=== PATIENT | male | born 1940 | race Caucasian/White ===

== ENCOUNTER 2017-01-24 06:45 | Day surgery (SDC) | payer OTHER ==
[~2017-01-24] VITALS: Ht 177.8 cm; Wt 71.5 kg
[~2017-01-24 06:45] MED LIST: ASPI81TA82 PO; COQ1400C2 PO; LEVA500T PO; LISI-366 PO; ROSU40 PO; TAB-TAB PO
[2017-01-24 07:00] VITALS: BP 109/61; PULSE 60; RESP 17; O2SAT 96
[2017-01-24] MEDS ORDERED: POVIDONE IODINE 5% (ANTISEPSIS KIT) 4 APPLICATIONS EACH NARE PRN (07:30)
[2017-01-24] MEDS ORDERED: INSULIN HUMAN REGULAR 1,000 UNITS/10 ML VIAL SQ PRN (07:30)
[2017-01-24] MEDS ORDERED: CHLORHEXIDINE GLUCONATE 2 % 1 PACK (2 CLOTHS) TOPICAL SCH (07:30)
[2017-01-24] MEDS ORDERED: LACTATED RINGER'S 1000 ML IV PRN (07:30)
[2017-01-24] MEDS ORDERED: MUPIROCIN 2% OINT 1 APPLIC/GM SYR NASAL SCH (07:30)
[2017-01-24] MEDS ORDERED: VANCOMYCIN 1000 MG/NS 250 ML IV SCH ×2 (07:30)
[2017-01-24] MEDS ORDERED: CHLORHEXIDINE GLUCONATE 2 % 1 PACK (2 CLOTHS) TOPICAL PRN (07:30)
[2017-01-24] MEDS ORDERED: Hold AM Insulin & AM Hypoglycemic medications in diabetic patients PRN (07:30)
[2017-01-24] MEDS ORDERED: SODIUM CHLORID 0.9% 500 ML IV PRN (07:30)
[2017-01-24] MEDS ORDERED: NO Heparin, Lovenox, Coumadin at least 12 hours prior to procedure. PRN (07:30)
[2017-01-24] MEDS ORDERED: ceFAZolin 2 GM PREMIX 50 ML IV SCH (07:30)
[2017-01-24] MEDS ORDERED: POVIDONE IODINE 5% (ANTISEPSIS KIT) 4 APPLICATIONS EACH NARE SCH (07:30)
[2017-01-24] MEDS ORDERED: METOPROLOL TARTRATE 25 MG TAB PO PRN (07:30)
[2017-01-24] MEDS ORDERED: AMIO200T PO (07:39)
[2017-01-24] MEDS ORDERED: CARV25TA PO (07:39)
[2017-01-24] MEDS ORDERED: SACU1TAB7 PO (07:39)
[2017-01-24] MEDS ORDERED: FURO1TAB62 PO (07:39)
[2017-01-24] MEDS ORDERED: XARE15TA PO (07:39)
[2017-01-24] MEDS ORDERED: ROSU40 PO (07:39)
[2017-01-24 07:57] LABS: APTT (PATIENT) 28.7 SEC (24.3-30.1); INTERNATIONAL NORMALIZED RATIO 1.1 RATIO; PROTHROMBIN TIME - PATIENT 12.4 SEC (9.8-11.6)
[2017-01-24] MEDS: NS 1000 ML IV SCH (08:00)
[2017-01-24 08:10] LABS: BICARBONATE 26.4 MEQ/L (21.0-32.0); POTASSIUM 4.3 MEQ/L (3.5-5.1)
[2017-01-24] MEDS ORDERED: LIDOCAINE HCL 2% 50 ML VIAL ONE (08:23)
[2017-01-24] MEDS ORDERED: MIDAZOLAM HCL 2 MG/2 ML VIAL ONE (08:47)
[2017-01-24] MEDS ORDERED: KETAMINE HCL 500 MG/10 ML VIAL ONE (08:47)
[2017-01-24] MEDS ORDERED: ONDANSETRON HCL 4 MG/2 ML VIAL IV PUSH ONE (09:02)
[2017-01-24] MEDS ORDERED: PROPOFOL 200 MG/20 ML AMP OTHER ONE (09:02)
[2017-01-24] MEDS ORDERED: IOHEXOL 350 MG/ML 50 ML BTL (for Cath Lab) OTHER ONE (09:02)
[2017-01-24 09:07] LABS: AUTOMATED NEUTROPHIL # 3.6 TH/MM3 (1.8-7.7); BASOPHIL % 0.8 % (0.0-2.0); EOSINOPHIL # 0.1 TH/MM3 (0-0.4); EOSINOPHIL % 2.5 % (0.0-4.0); HEMATOCRIT 37.3 % (39.0-51.0); HEMO FLAGS DIFF FINAL; LYMPH % 22.2 % (9.0-44.0); LYMPHOCYTE # 1.3 TH/MM3 (1.0-4.8); MEAN CELL VOLUME 96.9 FL (80.0-100.0); MEAN CORPUSCULAR HEMOGLOBIN 31.7 PG (27.0-34.0); MEAN CORPUSCULAR HGB CONC 32.7 % (32.0-36.0); MONO % 10.6 % (0.0-8.0); NEUT % 63.9 % (16.0-70.0); PLATELET COUNT 119 TH/MM3 (150-450); RED BLOOD COUNT 3.85 MIL/MM3 (4.50-5.90); RED CELL DISTRIBUTION WIDTH 14.3 % (11.6-17.2); WHITE BLOOD COUNT 5.7 TH/MM3 (4.0-11.0)
--- NOTE | 2017-01-24 10:50 | EKG ---
Date Performed: 01/24/2017 Time Performed: 07:46:54 PTAGE: 76 years EKG: Ventricular pacing. Pacemaker rhythm - no further analysis Abnormal ECG PREVIOUS TRACING : 01/25/2016 16.38 DOCTOR: Cody Bhat Interpretating Date/Time 01/24/2017 10:50:06
--- NOTE | 2017-01-24 11:14 | CATHPROC ---
[facility] HIS Report Study Information Study Number Admission Scheduled Start Study Start [id number] Jan 24 2017 6:45AM 01/24/2017 Jan 24 2017 7:47AM [facility] Service Cardiac Pacer/ICD Admit Source Facility Department Other [facility] [employer] Physician and Clinical Staff Initial Neptali Meléndez Resource Efficiency Manager Brandon Goodwin,RT(R) Other Anesthesia, BILLING ASSISTANT Recorder Kamille Lu,ZOILARN Scrub Merlyn Mcclelland,RT(R) TECH2 Procedures Performed Procedure Location (Site) Vessel Name Lead Insertion Venogram Coronary Sinus Other Venogram Subclav. Vein (Lft Subclavian Vein Wire insertion Coronary Sinus Other Equipment Time Movie Writer Description Size Mfg Part Number Used/Scraped [id number] 09:37 [employer] WIRE, ASAHI PROWATER 180CM 180CM Used *[id number] 76748-63 09:37 [employer] WIRE, ASAHI PROWATER 180CM 180CM Used *[id number] WIRE, BALANCE MIDDLEWEIGHT [id number] 10:08 [employer] 190CM Used 190CM *[id number] CATHETER, BIFURCATED 10:42 ANGIO-DYNAMICS FR 5 15545 Used INFUSION BENEPHIT [id number] 09:36 FUNES ASH SWAN JACQUES CATHETER FR 7 Used *[id number] DEFIBRILLATOR, ITREVIA 7 HF-T 10:38 BIOTRONIK VDE-DDDRV [id number] Used QP (BULK) 09:31 BIOTRONIK LEAD, PLEXA PRO-MRI SD 65/18 [id number] Used LEAD, SENTUS PRO-MRI OTW QP 09:56 BIOTRONIK * [id number] Used L-85/49 LEAD, SENTUS PRO-MRI OTW QP 10:36 BIOTRONIK [id number] Used S-75/49 [id number] 10:50 DAVOL INC NIA, HEMOSTAT 1 GRAM Used *[id number] MARINE POLYMER 10:43 PATCH, SYVEK EXCEL (PACER) 400-16-05 Used TECHNOLOGIES TP-1103 07:51 [employer] INDUSTRIES SUTURE, STRIP PLUS 1/2" * Used *[id number] 07:51 [employer] PACER ADHESIVE, MASTISOL 2/3CC 2/3CC 0523-48 Used 07:51 [employer] PACER LOPEZ, LIMB * 2530 *[id number] Used [id number] 07:51 [employer] PACER PACK, PACER CUSTOM * Used *[id number] 07:51 MEDLINE PACER PEN, SKIN DUAL W/ RULER * Used *[id number] 09:29 [employer] MEDICAL WIRE, 3MMJ .035 180CM 180CM Used *[id number] 08:42 [employer] MEDICAL PACER SAFE SHEATH, FR8, 13CM FR 8 [id number] Used 08:43 [employer] MEDICAL PACER SAFE SHEATH, FR9, 13CM FR 9 [id number] Used 08:45 Needle Sponge Count 1 111 Used 10:46 Needle Sponge Count 3 3 Used 10:53 Needle Sponge Count 3 3 Used 10:56 Needle Sponge Count 3 3 Used 08:44 Needle Sponge Count 3 3 Used 08:44 Needle Sponge Count 30 1 Used 10:53 Needle Sponge Count 30 1 Used 08:40 NYCOMED OMNIPAQUE, 350 MG, 50ML 50ML [id number] Used [id number] *[id number] SUTURE, 3-0 VICRYL [SH] ([id number]) SUTURE, 3-0 VICRYL [SH] ([id number]) SUTURE, 4-0 MONOCRYL [PS2] (Y496G) [id number] 07:51 [employer],WARM AIR CCL * Used *[id number] [facility] PAD, ELECTROSURGICAL 07:51 * [id number] *[id number] Used SURGICAL GROUNDING ORANGE 07:52 VITATRON MEDTRONIC PLASMABLADE, PEAD 3.0S * [id number] Used [id number] 07:51 [employer] HENRI. ELECTRODE, PRO-PADZ BIPHASIC * Used *[id number] Equipment Model, Serial, Lot Number and Expiration Data Description Model Number Serial Number Lot Number Expiration Date DEFIBRILLATOR, ITREVIA 7 HF-T [id number] 11-19-2018 QP (BULK) LEAD, PLEXA PRO-MRI SD 65/18 [id number] 08-22-2017 LEAD, SENTUS PRO-MRI OTW QP [id number] 09-19-2018 L-85/49 LEAD, SENTUS PRO-MRI OTW QP [id number] 11-19-2018 S-75/49 History: Current Medications Medication Dosage/Unit Route Frequency Last Date/Time Taken XARELTO Statins (any) Beta Ashley ASA History: Allergies Allergy Reaction NKDA History: Risk Factors Family History of Hypertension Dyslipidemia Previous OR Previous Heart Failure Premature CAD Yes Yes Yes Yes Yes Prior Valve Prior PCI Prior CABG Surgery No No Yes Cerebrovascular Peripheral Artery Chronic Lung On Dialysis Diabetes Disease Disease Disease No No Yes Yes No History: Risk Factors Selection Items Previous OR (>7 days) Hyperlipidemia Previous Cardiovascular Treatment History: Symptoms/Diagnosis Selection Items SOB History: CV Disease Selection Items Cardiomyopathy dilated Known CAD OR History: Other Disease Selection Items CAD HTN Renal Failure/Insufficiency Labs Hgb (g/dl) Hct (%) RBC (MIL/MM3) WBC (l/cumm) Platelets (thousands) 11.60-17.00 35.00-51.00 4.00-5.90 4.00-11.00 150.00-450.00 12.2 37.3 3.8 5.7 119 Glucose (mg/dl) BUN (mg/dl) Creatinine (mg/dl) BUN:Creatinine (1:x) 74.00-106.00 7.00-18.00 0.50-1.30 10.00-20.00 98 22 1.8 12.2 Na (meq/l) K (meq/l) Cl (meq/l) CO2 (mmol/L) Ca (mg/dl) 136.00-145.00 3.50-5.10 98.00-107.00 21.00-32.00 8.50-10.10 140 4.3 106 26.4 9.1 INR (PTT:PT) 0.90-1.10 1.1 Medication Medication Total Dose (Bolus/Oral) Medication Total Dosage/Unit 2% XYLOCAINE 50 mL Medications (Bolus/Oral) Medication Time Given Dosage/Unit Administered By Reason 2% XYLOCAINE 01/24/2017 9:04:06 AM 50 mL Neptali Reynolds For pain 50 mL 2% XYLOCAINE given in lab by Neptali Reynolds via Subcutaneous. Ordered by Neptali Reynolds. Reason: Fo r pain. left upper chest Medication (Drip) Medication Time Given Dosage/Unit Concentration/Unit Diluent (ml) Solution ANCEF 01/24/2017 8:46:57 AM 2 g 2 g ANCEF given in lab by Kamille Lu BSRN in Right Forearm via Peripheral IV. Ordered by Neptali Reynolds. Reason: As per physicians verbal order. IV Solutions 01/24/2017 8:34:50 AM 0 mL (IV) NaCl .9 IV Solutions given in lab by Kamille Lu BSRN in Right Forearm via Peripheral IV. Pump/Drip Thai w = 50 ml/hr using NaCl .9. Ordered by Neptali Reynolds. Reason: As per physicians verbal order. IV Solutions 01/24/2017 8:34:51 AM 0 mL (IV) NaCl .9 IV Solutions given in lab by Kamille Lu BSRN in Left Forearm via Peripheral IV. Pump/Drip Flow = 50 ml/hr using NaCl .9. Ordered by Neptali Reynolds. Reason: As per physicians verbal order. VANCOMYCIN DRIP 01/24/2017 8:18:00 AM 1 g 1 g VANCOMYCIN DRIP given in lab by Kamille Lu BSRN in Right Forearm via Peripheral IV. Ordere d by Neptali Reynolds. Reason: As per physicians verbal order. Initial Case Assessment Cardiovascular HR NIBP Chest Pain 60 129/79 0 Edema Present Skin color Skin None Normal Warm Dry Neurological State Oriented to time-place- Alert Moves all extremities person Respiration - General Respiration Rate SpO2 (%) (B/min) 18 97 Final Case Assessment Cardiovascular HR NIBP 68 113/73 Edema Present Skin color Skin None Normal Warm Dry Neurological State Oriented to time-place- Alert Moves all extremities person Respiration - General Respiration Rate SpO2 (%) (B/min) 18 98 Chronological Log Time Study Chronological Log 8:11:04 Patient arrived via Bed. 8:11:07 Patient Name, D.O.B, / Armband Verified By R.N. 8:11:09 Consent signed by the physician and the patient and verified by the [employer] staff. 1 g VANCOMYCIN DRIP given in lab by Kamille Lu BSRN in Right Forearm via Peripheral IV. Ordered by Rodolfo, 8:18:00 Neptali. Reason: As per physicians verbal order. 8:32:16 Pre-op and post- op instructions given; patient acknowledges understanding of instructions. 8:32:26 CBC redrawn and sent to lab. Dr. Reynolds notified of redraw and creatinine level. 8:33:05 Anesthesia at bedside. Assumes care of patient. Mu 8:33:09 Patient has been NPO for More than 6Hrs. 8:33:14 Skin Breakdown- scabs noted both hands 8:33:36 Patient Warmer Placed on the Table. 8:33:39 Disposable Defibrillator Pads Placed On Patient. 8:33:42 Remington Prominences Protected 8:33:47 A # 20 IV was noted in the Forearm (right). Grade = ~GRADE~ 8:34:42 A # 20 IV was noted in the Forearm (left). Grade = ~GRADE~ IV Solutions given in lab by Kamille Lu BSRN in Right Forearm via Peripheral IV. Pump/Dri p Flow = 50 ml/hr 8:34:50 using NaCl .9. Ordered by Neptali Reynolds. Reason: As per physicians verbal order. IV Solutions given in lab by Kamille Lu BSRN in Left Forearm via Peripheral IV. Pump/Drip Flow = 50 ml/hr using 8:34:51 NaCl .9. Ordered by Neptali Reynolds. Reason: As per physicians verbal order. 8:35:45 History and physical on the chart or being dictated. Assessment: Initial Case, HR=60 BPM, MCAM=895/79 mmhg, Chest Pain=0, Edema=None, Color=Normal, S kin = Warm, Dry 8:35:48 Neurological: State=Alert, Ox3, FREEMAN Respiration: Resp=18 B/min, SpO2=97 % 8:36:29 Table restraints applied according to hospital policy 8:36:33 Left Upper Chest Prepped Times Two. 8:36:45 2% CHLORHEXIDINE GLUCONATE WASH AND NASAL SWIPE DONE PRIOR TO PROCEDURE. 8:36:52 Bovie ground pad applied to: right leg First Sponge And Instrument Count Done by Brandon Goodwin, RT(R). Hypo's: 3, Sponges: 30, Bovie/scratch: 1 8:43:04 Sutures: 6, Blades: 2, Instruments: 26, Syveck Patches: 0 10 Raytec sponges added at 0945 on e suture added at 1045 2 g ANCEF given in lab by Kamille Lu BSRN in Right Forearm via Peripheral IV. Ordered by Neptali Reynolds. 8:46:57 Reason: As per physicians verbal order. 8:51:00 paged 8:51:01 MD responded 8:57:22 MD arrived. 8:57:51 Immediate Presedation assesment performed by physician. 8:59:42 Reference ECG taken Time Out. Correct patient, procedure, procedure equipment, site and side verified with physician present. Time 9::47 concurred by MD, individual staff and BILLING ASSISTANT. Time Out #2 - Consents verified, patient in correct position, all results are labled and display ed, safety precautions 9:01:53 taken, antibiotics administered. Time out concurred by MD, individual staff and BILLING ASSISTANT in procedur e 9:02:00 Case Start 50 mL 2% XYLOCAINE given in lab by Neptali Reynolds via Subcutaneous. Ordered by Neptali Reynolds. Reaso n: For pain. left 9:04:06 upper chest 9:05:29 The Subclav. Vein (Lft was manually injected with 10 cc's of contrast. OMNIPAQUE, 350 MG, 50 ML 50ML used. 9:05:47 Surgical Incision Made. 9:08:17 Pocket opened. 9:11:12 Device removed from pocket. 9:15:15 Vascular access was obtained in the Subclav. Vein (Lft. 9:16:04 2 Raytec sponges in pocket 9:16:34 Vascular access was obtained in the Subclav. Vein (Lft. 9:18:03 A SAFE SHEATH, FR8, 13CM FR 8 was advanced into the Subclav. Vein (Lft using the Percutaneou s technique. 9:22:54 A LEAD, PLEXA PRO-MRI SD 65/18 was inserted and positioned in the RV. 9:23:03 Lead placement verified under fluoroscopy 9:23:07 The RV lead impedance and threshold being tested. 9:23:11 The RV lead was sutured to the fascia. 9:29:01 Medtronic sheath inserted with 035 wire and placed in CS 9:33:34 The Coronary Sinus was manually injected with 10 cc's of contrast. OMNIPAQUE, 350 MG, 50ML 5 0ML used. 9:36:25 Tevin catheter inserted into CS Medtronic Lead. 9:37:20 Two Raytecs out of pocket. 9:37:39 Tevin catheter removed. Prowater inserted into CS 9:41:20 A LEAD, SENTUS PRO-MRI OTW QP L-85/49 * was inserted and positioned in the CS/LV. 9:45:59 Lead placement verified under fluoroscopy 9:46:03 The CS/LV lead impedance and threshold is being tested. 9:47:00 CS lead removed. 10:02:25 Tevin catheter reinserted. 10:05:08 The Coronary Sinus was manually injected with 10 cc's of contrast. OMNIPAQUE, 350 MG, 50ML 50ML used. 10:06:27 Tevin removed. 10:08:11 A WIRE, BALANCE MIDDLEWEIGHT 190CM 190CM was inserted via Coronary Sinus. 10:10:32 CS lead reinserted using BMW wire. 10:15:07 CS lead removed. 10:16:04 A LEAD, SENTUS PRO-MRI OTW QP S-75/49 was inserted and positioned in the CS/LV. New CS lead inserted. 10:24:26 Lead placement verified under fluoroscopy 10:24:29 The CS/LV lead impedance and threshold is being tested. 10:25:48 Prowater and BMW wires removed. 10:29:59 The CS/LV lead impedance and threshold is being tested. 10:30:10 The CS/LV lead was sutured to the fascia. 10:38:02 SYVEK placed in pocket. 10:38:28 A DEFIBRILLATOR, ITREVIA 7 HF-T QP (BULK) VDE-DDDRV was connected and placed in the pocket. 10:38:37 Implant Procedure was performed. BIV UPGRADE 10:39:06 A Bivent ICD Implant . (Dual) 10:41:19 SYVEK patch removed from pocket 10:42:44 Capping off old lead. 10:47:22 A two Joul DFT was performed. 10:49:10 Nia placed in pocket. 10:51:13 The DFT was Success at 20 Joules, 36 Ohms lead impedance and 3800 ms charge time. Second Sponge And Instrument Count Done by Brandon Goodwin RT(R). 10:51:55 Hypo's: 3, Sponges: 30, Bovie/scratch: 1 Sutures: ~SUTURE~, Blades: 2, Instruments: ~INSTRU~, Syveck Patches: 1 10 sponges added for a t otal of 40 10:52:12 The pocket was closed. 10:55:38 Bedside Report will be given to DOC 10:55:54 Steri-strips and a sterile dressing applied to site. The Final Sponge And Instrument Count Done by Brandon Goodwin RT(R). 10:55:58 Hypo's: 3, Sponges: 30, Bovie/scratch: 1 Sutures: 7, Blades: 2, Instruments: 26, Syveck Patches: 1 10 sponges added for total 0f 40 10:56:02 A sling was placed on the affected arm. 11:07:45 Case End Assessment: Final Case, HR=68 BPM, FFEE=725/73 mmhg, Edema=None, Color=Normal, Skin = Warm, Dry 11:08:00 Neurological: State=Alert, Ox3, FREEMAN Respiration: Resp=18 B/min, SpO2=98 % 11:12:00 No case complications noted. 11:13:17 Cine recording checked. 11:13:28 Implantable Device card placed in patient's chart. 11:13:30 Contrast Scanned 11:13:33 Defibrillator and ground pads removed. Skin intact. 11:13:37 Verbal Stimulation=2 Physical Stimulation=2 Airway=2 Respiration=2 TOTAL=10. (0=absent, 1= limited, 2=present) 11:13:59 Patient moved to bed and transported to [facility] in stable condition. End Study - Contrast Media Used In Study Contrast Total Opened (mL) Total Used (mL) Total Wasted (mL) Omnipaque 50 20 30 End Study - Maximum Contrast Load Max Contrast Load (mL) 195.3 End Study - Radiation Exposure Fluoro Time (minutes) 30.0 End Study - Patient Disposition Complications Transferred To Interventional Outcome No Telemetry Bed successful
[2017-01-24] MEDS ORDERED: DO NOT ADM ANY ANTICOAGULANT DRUGS PRN (11:15)
[2017-01-24] MEDS ORDERED: traMADol HCL 50 MG TAB PO PRN (11:30)
[2017-01-24] MEDS ORDERED: ZOLPIDEM TARTRATE 5 MG TAB PO PRN (11:30)
[2017-01-24] MEDS ORDERED: MORPHINE SULFATE 4 MG/ML INJ ONE (11:31)
--- NOTE | 2017-01-24 13:25 | MP ---
cc: BEATRICE CAMERON M.D. DATE OF SURGERY January 24, 2017 PROCEDURE Upgrade of a preexisting dual-chamber permanent pacemaker to a biventricular AICD, AICD defibrillation threshold testing. OPERATIVE NOTES The patient was brought to the operating suite in a fasting state after having signed informed consent. The left upper chest was prepped and draped as per policy and anesthetized with 1% lidocaine. A transverse incision was made over the preexisting pacemaker generator using a plasma blade and, using blunt dissection, the pacemaker generator was freed from the subcutaneous pocket. After administration of 5 cc of contrast through a left arm peripheral IV, central venous access was obtained twice via the left subclavian vein. A subcutaneous pocket was formed down to the pectoralis fascia. Over the more lateral guidewire an 8-Mosotho sheath was placed and through this sheath a ventricular active fixation AICD lead was introduced and its tip positioned in the right ventricular apex where a good current of injury, stimulation threshold (0.6 volts) was demonstrated. Sensitivity could not be obtained as the patient has no underlying rhythm. This lead was secured into place using 2-0 silk ties down to the pectoralis fascia. Over the remaining guidewire a 9-Mosotho sheath was placed and through this sheath a coronary sinus guiding catheter was introduced. The coronary sinus ostium was easily located. Contrast injection of the coronary sinus shows suitable areas for placement of a left ventricular lead. Initially we placed the left ventricular lead into a more posterolateral branch where good pacing parameters were demonstrated. However, it was felt the lead was not acceptably stable in this position. The lead was retracted. A balanced middle-weight guidewire was advanced into a more lateral branch. Over the wire the coronary sinus lead was introduced and positioned as far distally as possible where good pacing threshold (0.8 volts) was demonstrated. Once again sensitivity could not be measured as the patient has no underlying rhythm. The 9-Mosotho sheath was peeled away. The coronary sinus guiding catheter was also peeled away and the lead secured into place down to the pectoralis fascia using 2-0 silk ties. The atrial lead was disconnected from the preexisting pacemaker generator and connected to the AICD, which is a Biotronik Itrevia device. The right ventricular and left ventricular leads were connected to the AICD generator. The ventricular pacemaker lead was disconnected from the old pacemaker generator and the lead was capped. All the leads and the AICD generator were placed back into the subcutaneous pocket which was closed using 3-0 Vicryl interrupted stitches in two to three layers to close the subcutaneous tissue and then 4-0 Monocryl running stitch to close the subcuticular tissue. Overlapping Steri-Strips and a pressure dressing were applied. Testing of the device was performed. Ventricular fibrillation was induced. The patient was successfully rescued with a 20 joule shock after a charge time of 3.8 seconds at a shock impedance of 36 ohms. There were no apparent immediate complications. The patient tolerated the procedures well. A portable chest x-ray is pending at the time of this dictation. CONCLUSIONS 1. Status post successful upgrade of a preexisting dual-chamber permanent pacemaker to a biventricular AICD system using a Cole MartinroniFTRANS Itrevia AICD generator. 2. Status post AICD defibrillation threshold testing. MD JAVED Muñoz/OMAR /11:53 AM /1:17 PM ALIZA
--- NOTE | 2017-01-24 13:48 | RADRPT ---
EXAM DATE/TIME: 01/24/2017 12:21 [place] COMPARISON: CHEST SINGLE AP, January 25, 2016, 15:25. INDICATIONS : Post op pacemaker. MEDICAL HISTORY : Myocardial infarction. Hypercholesterolemia. AAA. Sleep apnea. CAD. SURGICAL HISTORY : CABG. ENCOUNTER: Initial ACUITY: 1 day PAIN SCORE: 5/10 LOCATION: Left chest FINDINGS: Interval revision with placement of AICD device with AICD leads projecting over the SVC and right danny tricle and new pacemaker lead projecting cephalad in the region of the right ventricle. Cardiac silho uette is enlarged. Mild left basilar airspace disease that reflects atelectasis. Redemonstration of b ilateral pleural plaques. No significant pneumothorax. The remainder of the exam is unchanged. CONCLUSION: 1. No significant pneumothorax status post revision with addition of AICD generator and leads, as abo ve. Chris Jeter MD on January 24, 2017 at 13:41 Board Certified Radiologist. This report was verified electronically.
[2017-01-24 15:30] VITALS: BP 130/95; PULSE 60; RESP 18; TEMP 98.2; O2SAT 99
[2017-01-24 17:00] VITALS: PULSE 60
[2017-01-24 18:01] VITALS: PULSE 60
[2017-01-24 19:00] VITALS: BP 130/80; PULSE 61; RESP 18; TEMP 98.2; O2SAT 94
[2017-01-24] MEDS: CARVEDILOL 12.5 MG TAB PO SCH (20:12)
[2017-01-24] MEDS: SACUBITRIL/VALSARTAN 49 MG-51 MG TAB PO SCH (20:12)
[2017-01-24] MEDS ORDERED: FUROSEMIDE 20 MG TAB PO SCH (21:00)
[2017-01-24] MEDS ORDERED: ATORVASTATIN 80 MG TAB PO SCH (21:00)
[2017-01-24 23:00] VITALS: BP 133/78; PULSE 60; RESP 18; TEMP 98.4; O2SAT 98
[2017-01-24] MEDS ORDERED: VANCOMYCIN INJ 1,000 MG in SODIUM CHLOR 0.9% 250 ML INJ 250 ML IV SCH (23:30)
[2017-01-25 03:00] VITALS: BP 116/67; PULSE 63; RESP 18; TEMP 98.8; O2SAT 97
[2017-01-25] MEDS: NS 1000 ML IV SCH (08:00)
[2017-01-25 08:08] VITALS: BP 115/69; PULSE 74; RESP 16; TEMP 98.5; O2SAT 94
[2017-01-25] MEDS ORDERED: AMIODARONE 200 MG TAB PO SCH (09:00)
[2017-01-25 09:02] VITALS: PULSE 60
[2017-01-25] MEDS: SACUBITRIL/VALSARTAN 49 MG-51 MG TAB PO SCH (09:58)
[2017-01-25] MEDS: CARVEDILOL 12.5 MG TAB PO SCH (09:59)
[2017-01-25 10:04] VITALS: PULSE 60
--- NOTE | 2017-01-25 10:52 | PD.CARD.PN ---
Subjective Subjective Remarks Denies pain, dyspnea. Objective Medications Item Value Date Time Amiodarone HCl 200 mg 01/25/17 0900 (Cordarone) DAILY/PO 01/25/1759 Carvedilol 25 mg 01/24/172099 (Coreg) BID/PO 01/25/17958 Furosemide 20 mg 01/24/172099 (Lasix) HS/PO 01/24/172011 Sacubitril/ 1 tab 01/24/172099 Valsartan BID/PO 01/25/1758 (Entresto 49-51 Mg) Atorvastatin 80 mg 01/24/172099 Calcium HS/PO 01/24/172011 (Lipitor) Vital Signs / I&O Vital Signs Date Time Temp Pulse Resp B/P Pulse Ox O2 Delivery O2 Flow Rate FiO2 01/25/17 10:04 60 01/25/17 09:02 60 01/25/17 08:08 74 01/25/17 08:08 98.5 74 16 115/69 94 01/25/17 03:00 98.8 63 18 116/67 97 01/24/17 23:00 60 01/24/17 23:00 98.4 60 18 133/78 98 01/24/17 21:13 18 01/24/17 19:00 61 01/24/17 19:00 98.2 61 18 130/80 94 01/24/17 18:01 60 01/24/17 17:00 60 01/24/17 15:30 98.2 60 18 130/95 99 I/O 01/24/17 01/24/17 01/24/17 01/25/17 01/25/17 01/25/17 07:00 15:00 23:00 07:00 15:00 23:00 Intake Total 720 ml 480 ml Balance 720 ml 480 ml Intake Oral 720 ml 480 ml # Voids 1 2 # Bowel Movements 0 Physical Exam ICD incision clean, dry, intact, no hematoma. Imaging Last 48 hours Impressions Chest X-Ray 01/24/17 1116 Signed Impressions: Service Date/Time: Tuesday, January 24, 2017 12:21 - CONCLUSION: 1. No significant pneumothorax status post revision with addition of AICD generator and leads, as above. Chris Jeter MD Assessment and Plan Problem List: (1) S/P ICD (internal cardiac defibrillator) procedure Assessment and Plan: Stable overnight. ICD function OK by re-interrogation this morning. ICD site OK. To discharge today, same home medications plus Levaquin 500 mg qd for 5 days. One week f/u to re-inspect incision. (2) CAD (coronary artery disease) Assessment and Plan: Stable. No recent angina. Cont medical therapy. (3) Hypertension Assessment and Plan: Stable. Normotensive. (4) Paroxysmal atrial fibrillation Assessment and Plan: Stable. No definite evidence for recurrent atrial fib. Continue to monitor via ICD checks. Resume Xarelto today. Code Status full code Discussed Condition With patient Problem Qualifiers (1) CAD (coronary artery disease): Qualified Code: I25.10 - Coronary artery disease involving makah coronary artery of makah heart without angina pectoris (2) Hypertension: Qualified Code: I10 - Essential hypertension Neptali Reynolds MD Jan 25, 2017 10:52
[2017-01-25] MEDS ORDERED: LEVA500T20 PO (10:58)
[2017-01-25] MEDS ORDERED: HYDR-3111 PO (10:58)
[2017-01-25 11:08] VITALS: BP 94/60; PULSE 59; PULSE 60; RESP 16; TEMP 98.6; O2SAT 94
== END 2017-01-25 11:42 | disposition home or self-care (01) ==
LOC: HCAT 06:45 → HDIC 06:46 → HCIN 15:37 → HCAT 01-25 11:42
PROVIDERS: ATTEND Internal Medicine Cardiovascular Disease
DX: Z45.02 Encounter for adjustment and management of automatic implantable cardiac defibrillator (principal); I44.2 Atrioventricular block, complete; I13.0 Hypertensive heart and chronic kidney disease with heart failure and stage 1 through stage 4 chronic kidney disease, or unspecified chronic kidney disease; I50.9 Heart failure, unspecified; N18.2 Chronic kidney disease, stage 2 (mild); I48.2 Chronic atrial fibrillation; I25.10 Atherosclerotic heart disease of native coronary artery without angina pectoris; E78.5 Hyperlipidemia, unspecified; I25.5 Ischemic cardiomyopathy; I48.92 Unspecified atrial flutter; I73.9 Peripheral vascular disease, unspecified; Z79.01 Long term (current) use of anticoagulants
CPT/HCPCS: 00534; 33224; 33249; 71010; 80048; 85025; 85610; 85730; 93005; 93641; C1769; C1882; C1895; C1900; J0690; J2250; J2270; J2405; J3010; J3370; J7030; J7050; Q9967

== ENCOUNTER 2017-01-31 13:53 | Day surgery (SDC) | payer OTHER ==
[~2017-01-31 13:53] MED LIST changes: +AMIO200T PO; -ASPI81TA82 PO; +CARV25TA PO; -COQ1400C2 PO; +FURO1TAB62 PO; +HYDR-3111 PO; -LEVA500T PO; +LEVA500T20 PO; -LISI-366 PO; +SACU1TAB7 PO; -TAB-TAB PO; +XARE15TA PO
[2017-01-31] MEDS ORDERED: SODIUM CHLOR 0.9% 250 ML INJ 250 ML ONE (15:26)
[2017-01-31 15:30] VITALS: BP 106/66; PULSE 60; RESP 17; TEMP 98; O2SAT 99
[2017-01-31] MEDS ORDERED: ceFAZolin INJ 1,000 MG VIAL IV ONE (15:30)
[2017-01-31] MEDS ORDERED: VANCOMYCIN HCL 1000 MG VIAL IV ONE (15:30)
[2017-01-31] MEDS ORDERED: MORPHINE SULFATE 4 MG/ML INJ ONE (16:28)
[2017-01-31] MEDS ORDERED: MORPHINE SULFATE 8 MG/ML INJ IV PUSH ONE (16:30)
[2017-01-31] MEDS ORDERED: MIDAZOLAM HCL 5 MG/5 ML VIAL ONE (17:18)
[2017-01-31] MEDS ORDERED: VANCOMYCIN 500 MG VIAL ONE (17:23)
[2017-01-31] MEDS ORDERED: ACETAMINOPHEN/HYDROcodone 325 MG/5 MG TAB PO PRN (17:45)
[2017-01-31] MEDS ORDERED: traMADol HCL 50 MG TAB PO PRN (17:45)
[2017-01-31] MEDS ORDERED: LIDOCAINE HCL 2% 50 ML VIAL ONE (17:46)
--- NOTE | 2017-01-31 18:25 | CATHPROC ---
Tractive HIS Report Study Information Study Number Admission Scheduled Start Study Start [id number] Jan 31 2017 1:53PM 01/31/2017 Jan 31 2017 5:29PM [place] Service Cardiac Catheterization Admit Source Facility Department Other [facility] - Evaporator Helper Physician and Clinical Staff Initial Neptali Meléndez Director Of Reservations Jose Armando Fong,BAM Recorder Swati Izaguirre,RT(R) Scrub Jseus, Lorene,APPLICATIONS DEVELOPMENT ANALYST TECH2 Equipment Time Ski Binding Fitter And Repairer Description Size Mfg Part Number Used/Scraped [id number] 17:41 MEDLINE INDUSTRIES SUTURE, STRIP PLUS 1/2" * Used *[id number] 17:41 MEDLINE PACER ADHESIVE, MASTISOL 2/3CC 2/3CC 0523-48 Used 17:41 MEDLINE PACER LOPEZ, LIMB * 2530 *[id number] Used [id number] 17:41 MEDLINE PACER PACK, PACER CUSTOM * Used *[id number] 17:41 MEDLINE PACER PEN, SKIN DUAL W/ RULER * Used *[id number] 17:43 Needle Sponge Count 2 22 Used 17:43 Needle Sponge Count 2 2 Used 17:43 Needle Sponge Count 30 1 Used [id number] *[id number] SUTURE, 3-0 VICRYL [SH] ([id number]) SUTURE, 3-0 VICRYL [SH] ([id number]) SUTURE, 4-0 MONOCRYL [PS2] ([id number]) [id number] 17:41 [employer],WARM AIR CCL * Used *[id number] [facility] PAD, ELECTROSURGICAL 17:41 * [id number] *[id number] Used SURGICAL GROUNDING ORANGE [id number] 17:41 Eveo HENRI. ELECTRODE, PRO-PADZ BIPHASIC * Used *[id number] History: Current Medications Medication Dosage/Unit Route Frequency Last Date/Time Taken XARELTO Statins (any) Beta Ashley ASA LASIX CRESTOR History: Allergies Allergy Reaction NKDA History: Risk Factors Family History of Hypertension Dyslipidemia Previous AK Previous Heart Failure Premature CAD Yes Yes Yes Yes Yes Prior Valve Prior PCI Prior CABG Prior CABGDate Surgery No No Yes 07/23/2008 Cerebrovascular Peripheral Artery Chronic Lung On Dialysis Diabetes Disease Disease Disease No No Yes Yes No History: Risk Factors Selection Items Previous AK (>7 days) Hyperlipidemia Previous Cardiovascular Treatment History: Symptoms/Diagnosis Selection Items SOB History: CV Disease Selection Items Cardiomyopathy dilated Known CAD AK History: Stress Tests Stress or Imaging Studies Performed No History: Other Disease Selection Items CAD HTN Renal Failure/Insufficiency History: Other Current Smoker No Medication Medication Total Dose (Bolus/Oral) Medication Total Dosage/Unit 2% XYLOCAINE 50 mL NIA 2 g FENTANYL 125 mcg VERSED 5 mg Medications (Bolus/Oral) Medication Time Given Dosage/Unit Administered By Reason VERSED 01/31/2017 5:30:38 PM 1 mg Ferlidevino Jose Armando 1 mg VERSED given in lab by Jose Armando Fong RN via Peripheral IV. FENTANYL 01/31/2017 5:31:56 PM 25 mcg FeryasminoAfshaney 25 mcg FENTANYL given in lab by Jose Armando Fong RN via Peripheral IV. VERSED 01/31/2017 5:44:11 PM 2 mg Ferlitto, Jose Armando 2 mg VERSED given in lab by Jose Armando Fong RN via Peripheral IV. FENTANYL 01/31/2017 5:45:27 PM 50 mcg Jose Armando Fong 50 mcg FENTANYL given in lab by Jose Armando Fong RN via Peripheral IV. 2% XYLOCAINE 01/31/2017 5:47:49 PM 50 mL Neptali Reynolds 50 mL 2% XYLOCAINE given in lab by Neptali Reynolds in Left shoulder via Subcutaneous. VERSED 01/31/2017 5:53:12 PM 1 mg Ferlitto Jose Armando 1 mg VERSED given in lab by Jose Armando Fong RN via Peripheral IV. FENTANYL 01/31/2017 5:54:28 PM 25 mcg Jose Armando Fong 25 mcg FENTANYL given in lab by Jose Armando Fong RN via Peripheral IV. NIA 01/31/2017 5:58:40 PM 1 g Neptali Reynolds 1 g NIA given in lab by Neptali Reynolds. IN POCKET VERSED 01/31/2017 6:01:22 PM 1 mg Jose Armando Fong 1 mg VERSED given in lab by Jose Armando Fong RN via Peripheral IV. FENTANYL 01/31/2017 6:02:43 PM 25 mcg Jose Armando Fong 25 mcg FENTANYL given in lab by Jose Armando Fong RN via Peripheral IV. NIA 01/31/2017 6:02:51 PM 1 g Rodolfo, Neptali 1 g NIA given in lab by Neptali Reynolds. IN POCKET Medication (Drip) Medication Time Given Dosage/Unit Concentration/Unit Diluent (ml) Solution ANCEF 01/31/2017 5:30:50 PM 1 g 1 g ANCEF given in lab by Jose Armando Fong, BAM via Peripheral IV. IV Solutions 01/31/2017 5:32:42 PM 0 mL (IV) 500 NaCl .9 Patient arrived on IV Solutions in Left Antecubital via Peripheral IV. Pump/Drip Flow = 20 ml/hr usin g NaCl .9. VANCOMYCIN DRIP 01/31/2017 5:30:20 PM 1 g 1 g VANCOMYCIN DRIP given in lab by Jose Armando Fong, BAM via Peripheral IV. Initial Case Assessment Cardiovascular HR Rhythm NIBP 62 reg 128/66 Edema Present Skin color Skin None Normal Warm Neurological State Oriented to time-place- Alert Moves all extremities person Respiration - General Respiration Rate SpO2 (%) O2 (lpm) (B/min) 10 100 2 Chronological Log Time Study Chronological Log 17:10:57 Patient arrived via Bed. 17:11:14 Pre-op and post- op instructions given; patient acknowledges understanding of instruction s. 17:11:20 Patient Name, D.O.B, / Armband Verified By R.N. 17:12:17 Verbal Stimulation=2 Physical Stimulation=2 Airway=2 Respiration=2 TOTAL=8. (0=absent, 1= limited, 2=present) 17:13:22 Patient has been NPO for More than 6Hrs. Skin Breakdown-large hematoma left upper chest 17:15:28 17:29:40 Reference ECG taken Vitals capture started with the following parameters, Patient=Adult, Interval=5 min, Initial Wrcasjxo=224 mmHg, 17:29:43 Deflation Rate=5 mmHg 17:30:19 ICD TURNED OFF BY [employer] EQUIPMENT FIELD SERVICE TECHNICIAN 17:30:20 1 g VANCOMYCIN DRIP given in lab by Jose Armando Fong, BAM via Peripheral IV. 17:30:28 HR=60 bpm, EAKW=013/74 mmhg, WqS2=404.0 %, Resp=11 B/min, Pain=0, Antonina=10, Mejia=2 17:30:38 1 mg VERSED given in lab by Jose Armando Fong, BAM via Peripheral IV. 17:30:50 1 g ANCEF given in lab by Jose Armando Fong RN via Peripheral IV. 17:31:56 25 mcg FENTANYL given in lab by Jose Armando Fong RN via Peripheral IV. 17:32:26 Patient Warmer Placed on the Table. 17:32:29 Remington Prominences Protected 17:32:35 A # 20 IV was noted in the Antecubital (left). Grade = 0 17:32:42 Patient arrived on IV Solutions in Left Antecubital via Peripheral IV. Pump/Drip Flow = 20 ml/hr using NaCl .9. 17:34:33 History and physical on the chart or being dictated. Assessment: Initial Case, HR=62 BPM, Rhythm=reg, QUXG=937/66 mmhg, Edema=None, Color=Normal, Sk in = Warm 17:34:34 Neurological: State=Alert, Ox3, FREEMAN Respiration: Resp=10 B/min, QjZ1=232 %, O2=2 lpm 17:35:21 HR=0 bpm, SLDA=167/66 mmhg, QhF6=816.0 %, Resp=18 B/min, Pain=0, Antonina=10, Mejia=2 17:35:32 Left Upper Chest Prepped Times Two. 17:35:36 paged 17:35:45 Bovie ground pad applied to:right thigh 17:35:55 2% CHLORHEXIDINE GLUCONATE WASH AND NASAL SWIPE DONE PRIOR TO PROCEDURE. First Sponge And Instrument Count Done by Jose Armando Fong RN. 17:36:04 Hypo's: hypo's, Sponges: sponges, Bovie/scratch: bovie/scratch Sutures: ~SUTURE~, Blades: ~BLADES~, Instruments: ~INSTRU~, Syveck Patches: ~SYVECK PATCH~ 17:40:18 HR=0 bpm, DWIV=818/72 mmhg, HuF2=589.0 %, Resp=14 B/min, Pain=0, Antonina=10, Mejia=2 17:41:23 MD arrived. First Sponge And Instrument Count Done by Jose Armando Fong RN. 17:42:26 Hypo's: 2, Sponges: 30, Bovie/scratch: 2 Sutures: 4, Blades: 3, Instruments: 25, Syveck Patches: 0 17:44:11 2 mg VERSED given in lab by Jose Armando Fong, BAM via Peripheral IV. 17:45:19 HR=68 bpm, QJYZ=949/71 mmhg, NyJ1=337.0 %, Resp=15 B/min, Pain=0, Antonina=10, Mejia=2 17:45:27 50 mcg FENTANYL given in lab by Jose Armando Fong, BAM via Peripheral IV. Time Out. Correct patient, procedure, procedure equipment, site and side verified with physicia n present. Time 17:46:52 concurred by MD, individual staff and NEW ACCOUNTS REPRESENTATIVE. Time Out #2 - Consents verified, patient in correct position, all results are labled and displa yed, safety precautions 17:46:54 taken, antibiotics administered. Time out concurred by MD, individual staff and NEW ACCOUNTS REPRESENTATIVE in procedu re 17:46:55 Case Start 17:47:49 50 mL 2% XYLOCAINE given in lab by Neptali Reynolds in Left shoulder via Subcutaneous. 17:49:47 Surgical Incision Made. 17:50:22 HR=68 bpm, GQVD=768/73 mmhg, JrE6=875.0 %, Resp=14 B/min, Pain=0, Antonina=10, Mejia=2 17:53:12 1 mg VERSED given in lab by Jose Armando Fong, BAM via Peripheral IV. 17:54:28 25 mcg FENTANYL given in lab by Jose Armando Fong, BAM via Peripheral IV. 17:55:15 HR=67 bpm, NXHD=652/94 mmhg, DpW9=961.0 %, Resp=19 B/min, Pain=0, Antonina=10, Mejia=2 17:56:07 HEMATOMA EVACUATED 17:56:25 Antibiotic Infusion Complete. 17:58:40 1 g NIA given in lab by Neptali Reynolds. IN POCKET 18:00:20 HR=65 bpm, JQPW=560/72 mmhg, KpD2=564.0 %, Resp=20 B/min, Pain=0, Antonina=10, Mejia=2 18:01:22 1 mg VERSED given in lab by Jose Armando Fong, BAM via Peripheral IV. 18:02:43 25 mcg FENTANYL given in lab by Jose Armando Fong, RN via Peripheral IV. 18:02:51 1 g NIA given in lab by Neptali Reynolds. IN POCKET 18:05:14 The pocket was closed. 18:05:21 HR=70 bpm, FIFX=666/71 mmhg, PvG5=460.0 %, Resp=16 B/min, Pain=0, Antonina=10, Mejia=2 18:10:22 HR=0 bpm, UIFE=083/72 mmhg, EcO0=336.0 %, Resp=30 B/min, Pain=0, Antonina=10, Mejia=2 18:15:21 HR=0 bpm, TRHI=299/73 mmhg, RhM0=326.0 %, Resp=9 B/min, Pain=0, Antonina=10, Mejia=2 18:17:21 Implant Procedure was performed. 18:18:03 A Pocket Revision . (Dual) 18:18:22 Bedside Report will be given. 18:19:15 Case End 18:19:19 Steri-strips and a sterile dressing applied to site. VASELINE GAUZE APPLIED Second Sponge And Instrument Count Done by Neptali Reynolds. 18:19:43 Hypo's: 2, Sponges: 30, Bovie/scratch: 2 Sutures: ~SUTURE~, Blades: 3, Instruments: 25, Syveck Patches: 0 18:20:22 HR=0 bpm, KVZL=258/73 mmhg, SpO2=99.0 %, Resp=10 B/min, Pain=0, Antonina=10, Mejia=2 The Final Sponge And Instrument Count Done by Neptali Reynolds. 18:24:12 Hypo's: 2, Sponges: 30, Bovie/scratch: 2 Sutures: 4, Blades: 3, Instruments: 25, Syveck Patches: 0 18:25:00 Vitals capture stopped. End Study - Radiation Exposure Fluoro Time (minutes) 0.0 End Study - Patient Disposition Complications Transferred To No Outpatient Bed
[2017-01-31] MEDS ORDERED: MORPHINE SULFATE 8 MG/ML INJ IV PUSH PRN (18:45)
[2017-01-31 20:00] VITALS: BP 135/80; PULSE 60; RESP 18; TEMP 98.8; O2SAT 96
[2017-01-31 22:00] VITALS: PULSE 64
[2017-01-31 23:00] VITALS: PULSE 60
[2017-02-01] VITALS (27 sets, daily range): BP systolic 93–119; BP diastolic 62–74; PULSE 48–70; RESP 18–20; TEMP 98–98.9; O2SAT 96–99
[2017-02-01] MEDS: FUROSEMIDE 20 MG TAB PO SCH ×2 (00:26→20:06)
[2017-02-01] MEDS: SACUBITRIL/VALSARTAN 49 MG-51 MG TAB PO SCH ×3 (00:27→20:07)
[2017-02-01] MEDS: ATORVASTATIN 80 MG TAB PO SCH ×2 (00:27→20:07)
[2017-02-01] MEDS: ZOLPIDEM TARTRATE 5 MG TAB PO PRN ×2 (03:30→22:36)
[2017-02-01] MEDS ORDERED: VANCOMYCIN INJ 1,000 MG in SODIUM CHLOR 0.9% 250 ML INJ 250 ML IV ONE ×2 (05:30→17:15)
--- NOTE | 2017-02-01 08:15 | PD.CARD.PN ---
Subjective Subjective Remarks Feels "good". Denies any pain, dyspnea, dizziness, palpitations. Objective Medications Item Value Date Time Amiodarone HCl 200 mg 02/01/17 0900 (Cordarone) DAILY/PO Carvedilol 25 mg 01/31/172099 (Coreg) BID/PO Furosemide 20 mg 01/31/172099 (Lasix) HS/PO 02/01/17 0026 Sacubitril/ 1 tab 01/31/172099 Valsartan BID/PO 02/01/17 002 (Entresto 49-51 Mg) Atorvastatin 80 mg 01/31/172099 Calcium HS/PO 02/01/17 002 (Lipitor) Vital Signs / I&O Vital Signs Date Time Temp Pulse Resp B/P Pulse Ox O2 Delivery O2 Flow Rate FiO2 02/01/17 07:00 62 02/01/17 05:00 54 02/01/17 04:00 98.9 67 18 98/64 97 02/01/17 04:00 60 02/01/17 03:00 60 02/01/17 02:00 60 02/01/17 01:00 66 02/01/17 00:00 98.6 61 20 93/62 98 02/01/17 00:00 60 01/31/17 23:00 60 01/31/17 22:00 64 01/31/17 20:00 98.8 60 18 135/80 96 01/31/17 18:40 97 Room Air 01/31/17 15:30 98.0 60 17 106/66 99 I/O 01/31/17 01/31/17 01/31/17 02/01/17 02/01/17 02/01/17 07:00 15:00 23:00 07:00 15:00 23:00 Intake Total 820 ml Output Total 3 ml Balance 817 ml Intake Oral 820 ml Output Urine Total 3 ml Physical Exam Incision site intact, nontender, ecchymotic. Small residual hematoma. No purulence. Assessment and Plan Problem List: (1) S/P ICD (internal cardiac defibrillator) procedure Assessment and Plan: Patient s/p upgrade of DDD pacemaker to biventricular ICD last week, now complicated by large hematoma in pocket, s/p evacuation of hematoma last night. Pain resolved. Incision intact. Difficult to tell if there was any necrotic subcutaneous tissue surrounding the incision line; tissue fairly friable. PLAN will have general surgery look at surgery site, see if any other suggestions for wound care hold Xarelto for a week (2) CAD (coronary artery disease) Assessment and Plan: History of CABG 2008. Stable. No angina symptoms. (3) Ischemic cardiomyopathy Assessment and Plan: EF 15-20%. Compensated at present. Continue comprehensive medical regimen. (4) Paroxysmal atrial fibrillation Assessment and Plan: Patient s/p ablation 04/23/16. Appears to be in ventricular paced rhythm at present. Will hold Xarelto for a week, change to daily baby aspirin for now. Continue Amiodarone. (5) Hypertension Assessment and Plan: Normotensive. Cont same. Code Status full code Discussed Condition With patient Problem Qualifiers (1) CAD (coronary artery disease): Qualified Code: I25.10 - Coronary artery disease involving [place] coronary artery of [place] heart without angina pectoris (2) Hypertension: Qualified Code: I10 - Essential hypertension Neptali Reynolds MD Feb 01, 2017 08:15
[2017-02-01] MEDS: CARVEDILOL 12.5 MG TAB PO SCH ×2 (09:05→20:07)
[2017-02-01] MEDS: LEVOFLOXACIN 500 MG TAB PO SCH (09:06)
[2017-02-01] MEDS: AMIODARONE 200 MG TAB PO SCH (09:06)
--- NOTE | 2017-02-01 12:32 | PD.CONS ---
cc: Mehran Gaines MD [facility] Service General Surgery Consult Requested By Dr. Reynolds Reason for Consult Evaluation of ICD pocket s/p incision and drainage of large hematoma Primary Care Physician Luis Bueno, History of Present Illness This is a 76 year old male with a past medical history of heart disease s/p ICD placement about a week ago. He was DCed from the hospital and felt fine. At home on he started to have increased pain and swelling and ICD site. On Sunday, he came to the ED to have it evaluated but left before being seen because the ED was so busy. The pain became unbearable on Sunday and he returned to the ED. On January [address] Reynolds took the patient to the laborer salvage to have a large hematoma drainage. He tolerated the procedure with no complications. A General Surgery consultation has been requested for evaluation of any further need for intervention of ICD pocket s/p drainage of large hematoma. Review of Systems Constitutional: DENIES: Fatigue, Fever, Dizziness Endocrine: DENIES: Polydipsia, Polyuria, Polyphagia Eyes: DENIES: Diplopia Ears, nose, mouth, throat: DENIES: Hearing loss Respiratory: DENIES: Cough Cardiovascular: DENIES: Chest pain Gastrointestinal: DENIES: Abdominal pain, Constipation, Diarrhea, Nausea, Vomiting Genitourinary: DENIES: Urinary frequency Musculoskeletal: DENIES: Joint pain Integumentary: COMPLAINS OF: Abnormal pigmentation (ecchymotic changes over LEFT chest/anterior shoulder with large palpable hematoma ) Hematologic/lymphatic: COMPLAINS OF: Bruising Neurologic: DENIES: Headache, Localized weakness Psychiatric: DENIES: Mood changes, Depression, Hallucinations Past Family Social History Past Medical History Heart disease Hypertension Past Surgical History Bilateral inguinal hernia repairs CABG x 3 ICD placement last week Reported Medications Entresto Amlodipine Xerelto Coreg Crestor Lasix Vicodin Allergies: Coded Allergies: No Known Allergies (Unverified , 01/25/16) Active Ordered Medications Current Medications Medications (Trade) Dose Ordered Sig/Ramses Route Start Time Stop Time Status Last Admin (Ambien) 5 mg HS PRN PO 01/31/17 17:45 02/01/17 03:30 (Ultram) 50 mg Q6HR PRN PO 01/31/17 17:45 (Cordarone) 200 mg DAILY PO 02/01/17 09:00 02/01/17 09:06 (Coreg) 25 mg BID PO 01/31/17 21:00 02/01/17 09:05 (Lasix) 20 mg HS PO 01/31/17 21:00 02/01/17 00:26 (Morris 5-325 Mg) 1 tab Q6H PRN PO 01/31/17 17:45 (Levaquin) 500 mg DAILY PO 02/01/17 09:00 02/01/17 09:06 (Entresto 49-51 Mg) 1 tab BID PO 01/31/17 21:00 02/01/17 09:06 (Lipitor) 80 mg HS PO 01/31/17 21:00 02/01/17 00:27 (Morphine Inj) 4 mg Q3H PRN IV PUSH 01/31/17 18:45 Family History Noncontributory Social History Denies current tobacco use Social EtOH use; not daily Denies illicit drug use Physical Exam Vital Signs Vital Signs Date Time Temp Pulse Resp B/P Pulse Ox O2 Delivery O2 Flow Rate FiO2 02/01/17 12:00 64 02/01/17 11:45 98.0 53 20 102/68 96 02/01/17 11:00 53 02/01/17 10:00 54 02/01/17 09:00 63 02/01/17 08:00 55 02/01/17 08:00 98.4 48 20 111/70 96 02/01/17 07:00 62 02/01/17 05:00 54 02/01/17 04:00 98.9 67 18 98/64 97 02/01/17 04:00 60 02/01/17 03:00 60 02/01/17 02:00 60 02/01/17 01:00 66 02/01/17 00:00 98.6 61 20 93/62 98 02/01/17 00:00 60 01/31/17 23:00 60 01/31/17 22:00 64 01/31/17 20:00 98.8 60 18 135/80 96 01/31/17 18:40 97 Room Air 7/12/17 15:30 98.0 60 17 106/66 99 Physical Exam GENERAL: 76 year old male resting in bed in no acute distress. SKIN: Ecchymotic changes over LEFT chest/anterior shoulder with large palpable hematoma; LEFT arm in sling. HEAD: Atraumatic. Normocephalic. EYES: Pupils equal and round. No scleral icterus. No injection or drainage. ENT: No nasal bleeding or discharge. Mucous membranes pink and moist. NECK: Trachea midline. CARDIOVASCULAR: Regular rate and rhythm. ICD in place. RESPIRATORY: No accessory muscle use. Clear to auscultation. Breath sounds equal bilaterally. GASTROINTESTINAL: Abdomen soft, non-tender, nondistended. MUSCULOSKELETAL: Extremities without clubbing, cyanosis, or edema. No obvious deformities. NEUROLOGICAL: Awake and alert. No obvious cranial nerve deficits. Motor grossly within normal limits. Five out of 5 muscle strength in the arms and legs. Normal speech. PSYCHIATRIC: Appropriate mood and affect; insight and judgment normal. Assessment and Plan Assessment and Plan 76 year old male s/p ICD placement with large hematoma s/p incision and drainage by Dr. Reynolds -Will discusses with Dr. Reynolds further -May need operative intervention vs local wound care -Continue Xeroform dressing to wound -Continue antibiotics -CBC ordered today -Thank you for this consult; we will follow along with you Discussed Condition With Vivi Burton Feb 01, 2017 12:32
--- NOTE | 2017-02-01 13:00 | MP ---
cc: BEATRICE CAMERON M.D. DATE OF SURGERY: 01/31/2017 PROCEDURE Evacuation of a large amount of hematoma within an ICD pocket. OPERATIVE NOTE The patient was brought to the operating suite in the fasting state after having signed informed consent. The left upper chest was prepped and draped as per policy and anesthetized with 1% lidocaine. A transverse incision was made over the preexisting recent incision. A large amount of hematoma was evacuated from the pocket. The pocket was copiously flushed with vancomycin solution. Jacklyn powder was also placed into the anterior and posterior portions of the pocket. The pocket was closed using 3-0 Vicryl interrupted stitches in one to two layers with additional 4-0 Vicryl interrupted stitches to close as much of the subcutaneous and subcuticular tissue as possible. The tissue was very friable. There may be some necrotic portions as well. Vaseline gauze dressing was applied and a heavy pressure dressing was also applied. The patient's anticoagulation therapy will be held. There were no apparent immediate complications. CONCLUSION Successful evacuation of a large amount of hematoma from an ICD pocket. MD JAVED Muñoz/PRAKASH /6:29 PM /12:58 PM
[2017-02-01 15:34] LABS: AUTOMATED NEUTROPHIL # 4.7 TH/MM3 (1.8-7.7); BASOPHIL % 0.6 % (0.0-2.0); EOSINOPHIL # 0.1 TH/MM3 (0-0.4); EOSINOPHIL % 1.9 % (0.0-4.0); HEMATOCRIT 30.5 % (39.0-51.0); HEMO FLAGS DIFF FINAL; LYMPH % 16.9 % (9.0-44.0); LYMPHOCYTE # 1.2 TH/MM3 (1.0-4.8); MEAN CELL VOLUME 97.2 FL (80.0-100.0); MEAN CORPUSCULAR HEMOGLOBIN 31.4 PG (27.0-34.0); MEAN CORPUSCULAR HGB CONC 32.4 % (32.0-36.0); MONO % 12.9 % (0.0-8.0); NEUT % 67.7 % (16.0-70.0); PLATELET COUNT 117 TH/MM3 (150-450); RED BLOOD COUNT 3.14 MIL/MM3 (4.50-5.90); RED CELL DISTRIBUTION WIDTH 13.5 % (11.6-17.2); WHITE BLOOD COUNT 6.9 TH/MM3 (4.0-11.0)
[2017-02-01] MEDS ORDERED: ONDANSETRON HCL 4 MG/2 ML VIAL IV PUSH PRN (16:00)
[2017-02-01 16:01] LABS: BICARBONATE 27.3 MEQ/L (21.0-32.0); POTASSIUM 3.9 MEQ/L (3.5-5.1)
[2017-02-02] VITALS (21 sets, daily range): BP systolic 90–104; BP diastolic 56–65; PULSE 60–78; RESP 18–20; TEMP 97–98.4; O2SAT 95–96
--- NOTE | 2017-02-02 07:51 | PD.CARD.PN ---
Subjective Subjective Remarks Feels "good". Denies pain, dyspnea, dizziness. Slept very well. Objective Medications Item Value Date Time Sacubitril/ 1 tab 01/31/172099 Valsartan BID/PO 02/01/17905 (Entresto 49-51 Mg) Amiodarone HCl 200 mg 02/01/17 0900 (Cordarone) DAILY/PO 02/01/17905 Carvedilol 25 mg 01/31/172099 (Coreg) BID/PO 02/01/172006 Furosemide 20 mg 01/31/17 2100 (Lasix) HS/PO 02/01/172005 Sacubitril/ 1 tab 01/31/172099 Valsartan BID/PO 02/01/172006 (Entresto 49-51 Mg) Atorvastatin 80 mg 01/31/172099 Calcium HS/PO 02/01/172006 (Lipitor) Vital Signs / I&O Vital Signs Date Time Temp Pulse Resp B/P Pulse Ox O2 Delivery O2 Flow Rate FiO2 02/02/17 06:00 60 02/02/17 05:00 60 02/02/17 04:16 60 02/02/17 04:00 98.4 62 18 90/56 95 02/02/17 04:00 60 02/02/17 03:00 60 02/02/17 02:00 60 02/02/17 01:00 60 02/02/17 00:00 62 02/02/17 00:00 97.9 62 18 94/65 96 02/01/17 23:16 60 02/01/17 23:00 60 02/01/17 22:00 60 02/01/17 21:00 60 02/01/17 20:00 60 02/01/17 20:00 98.5 68 18 119/74 99 02/01/17 19:26 60 02/01/17 19:00 60 02/01/17 18:00 64 02/01/17 17:00 60 02/01/17 16:00 60 02/01/17 15:32 98.6 70 20 116/72 96 02/01/17 15:00 60 02/01/17 14:00 58 02/01/17 13:00 60 02/01/17 12:00 64 02/01/17 11:45 98.0 53 20 102/68 96 02/01/17 11:00 53 02/01/17 10:00 54 02/01/17 09:00 63 02/01/17 08:00 55 02/01/17 08:00 98.4 48 20 111/70 96 I/O 02/01/17 02/01/17 02/01/17 02/02/17 02/02/17 02/02/17 07:00 15:00 23:00 07:00 15:00 23:00 Intake Total 820 ml 775 ml 240 ml Output Total 3 ml 775 ml Balance 817 ml 0 ml 240 ml Intake Oral 820 ml 775 ml 240 ml Output Urine Total 3 ml 775 ml # Voids 4 # Bowel Movements 0 0 Physical Exam Incision site intact, nontender, ecchymotic. Small amount residual hematoma. No purulence. Laboratory Laboratory Tests Test 02/01/17 15:18 White Blood Count 6.9 TH/MM3 Red Blood Count 3.14 MIL/MM3 Hemoglobin 9.9 GM/DL Hematocrit 30.5 % Mean Corpuscular Volume 97.2 FL Mean Corpuscular Hemoglobin 31.4 PG Mean Corpuscular Hemoglobin 32.4 % Concent Red Cell Distribution Width 13.5 % Platelet Count 117 TH/MM3 Mean Platelet Volume 9.5 FL Neutrophils (%) (Auto) 67.7 % Lymphocytes (%) (Auto) 16.9 % Monocytes (%) (Auto) 12.9 % Eosinophils (%) (Auto) 1.9 % Basophils (%) (Auto) 0.6 % Neutrophils # (Auto) 4.7 TH/MM3 Lymphocytes # (Auto) 1.2 TH/MM3 Monocytes # (Auto) 0.9 TH/MM3 Eosinophils # (Auto) 0.1 TH/MM3 Basophils # (Auto) 0.0 TH/MM3 CBC Comment DIFF FINAL Differential Comment Sodium Level 137 MEQ/L Potassium Level 3.9 MEQ/L Chloride Level 103 MEQ/L Carbon Dioxide Level 27.3 MEQ/L Anion Gap 7 MEQ/L Blood Urea Nitrogen 18 MG/DL Creatinine 1.09 MG/DL Estimat Glomerular Filtration 66 ML/MIN Rate Random Glucose 112 MG/DL Calcium Level 9.1 MG/DL Assessment and Plan Problem List: (1) S/P ICD (internal cardiac defibrillator) procedure Assessment and Plan: Patient s/p upgrade of DDD pacemaker to biventricular ICD last week, now complicated by large hematoma in pocket, s/p evacuation of hematoma. Pain resolved. Incision intact. Difficult to tell if there was any necrotic subcutaneous tissue surrounding the incision line; tissue was fairly friable. PLAN will follow any of Dr. Gaines's recommendations regarding wound care/ intervention, discharge when OK from surgical standpoint hold Xarelto for a week, daily baby aspirin while off Xarelto (2) CAD (coronary artery disease) Assessment and Plan: History of CABG 2008. Stable. No angina symptoms. (3) Ischemic cardiomyopathy Assessment and Plan: EF 15-20%. Compensated at present. Continue comprehensive medical regimen. (4) Paroxysmal atrial fibrillation Assessment and Plan: Patient s/p ablation 04/23/16. Appears to be in ventricular paced rhythm at present. Will hold Xarelto for a week, change to daily baby aspirin for now. Continue Amiodarone. (5) Hypertension Assessment and Plan: Normotensive. Cont same. Code Status full code Discussed Condition With patient Problem Qualifiers (1) CAD (coronary artery disease): Qualified Code: I25.10 - Coronary artery disease involving [place] coronary artery of [place] heart without angina pectoris (2) Hypertension: Qualified Code: I10 - Essential hypertension Neptali Reynolds MD Feb 02, 2017 07:50
[2017-02-02] MEDS: SACUBITRIL/VALSARTAN 49 MG-51 MG TAB PO SCH (09:00)
[2017-02-02] MEDS: LEVOFLOXACIN 500 MG TAB PO SCH (09:11)
[2017-02-02] MEDS: CARVEDILOL 12.5 MG TAB PO SCH (09:11)
[2017-02-02] MEDS: AMIODARONE 200 MG TAB PO SCH (09:11)
--- NOTE | 2017-02-02 17:10 | HHI.PR ---
Subjective Subjective Notes Resting in bed Eager to get home Objective Vitals/I&O Vital Signs Date Time Temp Pulse Resp B/P Pulse Ox O2 Delivery O2 Flow Rate FiO2 02/02/17 17:06 78 02/02/17 15:35 97.2 20 100/58 95 01/31/17 18:40 Room Air Cardiovascular: Regular Lungs: Clear Abdomen: Non-distended, Non-tender Narrative Exam LEFT chest--s/p ICD placement; ecchymotic; incision with minimal SS drainage; Prevena dressing placed A/P Assessment and Plan 76 year old male s/p ICD placement with large hematoma s/p incision and drainage by Dr. Reynolds -Prevena dressing placed -Follow up in office on Sunday - to shower--keep dressing dry -Heart healthy diet -GS clear for Viiv Scott Feb 02, 2017 17:10
== END 2017-02-02 17:34 | disposition home or self-care (01) ==
LOC: HDOC 13:53 → HDIC 14:36 → HCIS 20:25 → HDOC 02-02 17:34
PROVIDERS: ATTEND Internal Medicine Cardiovascular Disease
DX: I97.638 Postprocedural hematoma of a circulatory system organ or structure following other circulatory system procedure (principal); I10 Essential (primary) hypertension; I25.10 Atherosclerotic heart disease of native coronary artery without angina pectoris; I25.5 Ischemic cardiomyopathy; I48.0 Paroxysmal atrial fibrillation; Z95.810 Presence of automatic (implantable) cardiac defibrillator; Z95.1 Presence of aortocoronary bypass graft; Z79.01 Long term (current) use of anticoagulants
CPT/HCPCS: 33223; 80048; 85025; J0690; J2250; J2270; J3010; J3370; J7050